=== PATIENT | female | born 1960 | race Caucasian/White ===

== ENCOUNTER 2018-08-10 16:04 | Emergency (ER) | payer OTHER, MEDICAID ==
[~2018-08-10] VITALS: Ht 152.4 cm; Wt 71.7 kg
[~2018-08-10 16:04] MED LIST: ASPI81CT89 PO; ATOR40TA PO; NOV7030 SUBQ
[2018-08-10 16:17] VITALS: BP 122/71
[2018-08-10] MEDS ORDERED: NACL 0.9% 500 ML IV ONE (16:35)
[2018-08-10 16:57] LABS: BASOPHILS # (AUTO) 0.1 K/uL (0.00-0.22); BASOPHILS % (AUTO) 0.9 % (0.0-2.0); EOSINOPHILS # (AUTO) 0.3 K/uL (0-0.4); HEMATOCRIT 32.9 % (36-48); HEMOGLOBIN 10.4 g/dL (12.0-16.0); LYMPHOCYTES # (AUTO) 1.7 K/uL (2.5-16.5); LYMPHOCYTES % (AUTO) 17.3 % (20.5-51.1); MEAN CORPUSCULAR HEMOGLOBIN 27 pg (27-31); MEAN CORPUSCULAR HGB CONC 32 g/dL (33-37); MEAN CORPUSCULAR VOLUME 84.3 fL (80-94); MONOCYTES # (AUTO) 0.4 K/uL (0.8-1.0); MONOCYTES % (AUTO) 4.6 % (1.7-9.3); NEUTROPHILS # (AUTO) 7.2 K/uL (1.8-7.7); NEUTROPHILS % (AUTO) 74.2 % (42.2-75.2); PLATELET COUNT (AUTO) 237 K/uL (140-450); RED CELL DISTRIBUTION WIDTH 14.4 % (11.6-13.7); WHITE BLOOD COUNT (AUTO) 9.7 K/uL (4.8-10.8)
[2018-08-10 17:14] LABS: PROTHROMBIN TIME 9.6 secs (10.8-13.4)
[2018-08-10 17:22] LABS: ALBUMIN 3.2 g/dL (3.4-5.0); ANION GAP 21.5 (8-16); CARBON DIOXIDE 14.4 mmol/L (21-32); POTASSIUM 4.9 mmol/L (3.5-5.1); TOTAL BILIRUBIN 0.2 mg/dL (0.0-1.0)
[2018-08-10 17:40] LABS: CREATININE 6.9 mg/dL (0.6-1.3)
[2018-08-10 19:30] VITALS: BP 122/71
== END 2018-08-10 19:30 | disposition short-term general hospital (02) ==
LOC: MED 16:04
DX: N17.9 Acute kidney failure, unspecified (principal); J45.909 Unspecified asthma, uncomplicated; E11.9 Type 2 diabetes mellitus without complications; I10 Essential (primary) hypertension; R94.31 Abnormal electrocardiogram [ECG] [EKG]; Z79.1 Long term (current) use of non-steroidal anti-inflammatories (NSAID)
CPT/HCPCS: 36415; 71045; 80053; 82948; 83605; 83880; 84484; 85025; 85610; 85730; 87040; 93005; 99285; J7030; C1758